=== PATIENT | female | born 1970 | race Caucasian/White ===

== ENCOUNTER 2020-05-30 11:27 | Emergency (ER) | payer BC ==
[~2020-05-30] VITALS: Ht 157.5 cm; Wt 83.9 kg
--- NOTE | 2020-05-30 11:46 | NUR ---
PT STATED, I HAD A VERY SMALL BM THIS MORNING.
[2020-05-30 13:16] LABS: BASOPHILS # (AUTO) 0.1 X10'3 (0-0.2); BASOPHILS % (AUTO) 0.8 % (0-1); EOSINOPHILS # (AUTO) 0.1 X10'3 (0-0.9); EOSINOPHILS % (AUTO) 0.7 % (0-6); HEMATOCRIT 36.4 % (35.0-45.0); HEMOGLOBIN 11.4 g/dl (12.0-16.0); LYMPHOCYTES # (AUTO) 1.1 X10'3 (1.1-4.8); LYMPHOCYTES % (AUTO) 8.1 % (21-51); MEAN CORPUSCULAR HGB CONC 31.4 g/dL (33.0-36.5); MEAN CORPUSCULAR VOLUME 73.2 FL (78-98); MEAN PLATELET VOLUME 9.8 FL (7.4-10.4); MONOCYTES % (AUTO) 7.4 % (2-12); NEUTROPHILS # (AUTO) 11.3 X10'3 (1.8-7.7); PLATELET COUNT 406 X10'3 (140-440); RED BLOOD COUNT 4.97 X10'6 (4.20-5.60); RED CELL DISTRIBUTION WIDTH 16.2 % (11.5-14.5); WHITE BLOOD COUNT 13.7 X10'3 (4.5-11.0)
--- NOTE | 2020-05-30 13:18 | NUR ---
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
[2020-05-30 13:28] LABS: ALANINE AMINOTRANSFERASE 13 U/L (12-78); ALBUMIN/GLOBULIN RATIO 0.5 (1.1-1.5); ALKALINE PHOSPHATASE 77 IU/L (46-116); ANION GAP 14 (8-16); ASPARTATE AMINO TRANSFERASE 30 U/L (10-37); BILIRUBIN,TOTAL 0.5 MG/DL (0.1-1.0); BLOOD UREA NITROGEN 12 MG/DL (7-18); BUN/CREATININE RATIO 13.5 (6.6-38.0); CALCIUM 9.5 MG/DL (8.5-10.1); CHLORIDE 101 MMOL/L (99-107); CREATININE 0.89 MG/DL (0.40-0.90); GLUCOSE 77 MG/DL (70-104); POTASSIUM 4.3 MMOL/L (3.5-5.1); SODIUM 136 MMOL/L (135-145); TOTAL CARBON DIOXIDE 20.9 MMOL/L (24-32); TOTAL PROTEIN 8.5 G/DL (6.4-8.2); eGFR 67 ML/MIN
[2020-05-30] MEDS ORDERED: HYDR-4353 PO (14:03)
[2020-05-30] MEDS ORDERED: morphine 4 MG/ML inj SYRINge IV ONE (14:15)
[2020-05-30] MEDS ORDERED: ondansetron/PF 4mg/2ml inj IV ONE (14:15)
[2020-05-30 14:36] VITALS: BP 160/88
== END 2020-05-30 14:35 | disposition home or self-care (01) ==
LOC: ER 11:27
DX: R10.84 Generalized abdominal pain (principal); K59.00 Constipation, unspecified; R19.07 Generalized intra-abdominal and pelvic swelling, mass and lump
CPT/HCPCS: 36415; 74176; 80053; 85025; 99284

== ENCOUNTER 2020-06-16 07:15 | Emergency (ER) | payer BC ==
[~2020-06-16] VITALS: Ht 157.5 cm; Wt 68.2 kg
[2020-06-16] MEDS ORDERED: normal saline 1000ML IV soln IVB ONE (07:45)
[2020-06-16] MEDS ORDERED: ondansetron/PF 4mg/2ml inj IV ONE (07:45)
[2020-06-16] MEDS: morphine 4 MG/ML inj SYRINge IV PRN ×2 (07:55→09:49)
[2020-06-16 08:07] LABS: BASOPHILS # (AUTO) 0.2 X10'3 (0-0.2); BASOPHILS % (AUTO) 1.2 % (0-1); EOSINOPHILS # (AUTO) 0.1 X10'3 (0-0.9); EOSINOPHILS % (AUTO) 0.4 % (0-6); HEMATOCRIT 34.9 % (35.0-45.0); LYMPHOCYTES # (AUTO) 1.4 X10'3 (1.1-4.8); LYMPHOCYTES % (AUTO) 6.7 % (21-51); MEAN CORPUSCULAR HEMOGLOBIN 22.6 PG (27.0-31.0); MEAN CORPUSCULAR HGB CONC 31.5 g/dL (33.0-36.5); MEAN CORPUSCULAR VOLUME 71.7 FL (78-98); MEAN PLATELET VOLUME 9.9 FL (7.4-10.4); MONOCYTES # (AUTO) 1.4 X10'3 (0-0.9); MONOCYTES % (AUTO) 6.7 % (2-12); NEUTROPHILS # (AUTO) 17.4 X10'3 (1.8-7.7); PLATELET COUNT 672 X10'3 (140-440); RED BLOOD COUNT 4.87 X10'6 (4.20-5.60); RED CELL DISTRIBUTION WIDTH 17.8 % (11.5-14.5); WHITE BLOOD COUNT 20.4 X10'3 (4.5-11.0)
[2020-06-16 08:25] LABS: ALANINE AMINOTRANSFERASE 8 U/L (12-78); ALBUMIN 2.3 G/DL (3.4-5.0); ALBUMIN/GLOBULIN RATIO 0.4 (1.1-1.5); ALKALINE PHOSPHATASE 87 IU/L (46-116); ANION GAP 20 (8-16); ASPARTATE AMINO TRANSFERASE 23 U/L (10-37); BILIRUBIN,TOTAL 0.4 MG/DL (0.1-1.0); BLOOD UREA NITROGEN 84 MG/DL (7-18); BUN/CREATININE RATIO 17.3 (6.6-38.0); CALCIUM 9.4 MG/DL (8.5-10.1); CHLORIDE 98 MMOL/L (99-107); CREATININE 4.86 MG/DL (0.40-0.90); GLUCOSE 121 MG/DL (70-104); LIPASE 76 U/L (73-393); POTASSIUM 4.1 MMOL/L (3.5-5.1); SODIUM 138 MMOL/L (135-145); TOTAL PROTEIN 8.3 G/DL (6.4-8.2); eGFR 9 ML/MIN
[2020-06-16 08:34] LABS: MAGNESIUM 2.4 MG/DL (1.5-2.4)
[2020-06-16 09:04] LABS: CLARITY,URINE CLOUDY (Clear); COLOR,URINE YELLOW (Yellow); GLUCOSE, URINE NEGATIVE (Neg); KETONES,URINE TRACE mg/dl (Neg); LEUKOCYTE ESTERASE ,URINE NEGATIVE (Neg); NITRITES, URINE POSITIVE (Neg); OCCULT BLOOD,URINE LARGE (Neg); PH,URINE 5.5 (4.8-8.0); PROTEIN,URINE 30 mg/dl (Neg); UROBILINOGEN,URINE 0.2 E.U/dL (0.2-1.0)
[2020-06-16 09:09] LABS: UA COLLECTION TYPE CLN CATCH MIDSTREAM
[2020-06-16 09:12] LABS: BACTERIA,URINE 4+ /HPF (Neg); SQUAMOUS EPITHELIAL CELL,UR MANY /LPF (FEW)
[2020-06-16 09:13] LABS: MUCUS STRANDS MANY /LPF (Neg); TRANSITIONAL EPI CELLS,URINE FEW /HPF
[2020-06-16 09:14] LABS: CELLULAR CAST 0-4 /LPF (NEGATIVE); FINE GRANULAR CAST 0-3 /LPF (NEGATIVE)
[2020-06-16 09:16] LABS: ANISOCYTOSIS 1+; MICROCYTOSIS 1+; PLATELET ESTIMATE INCREASED
[2020-06-16 09:17] LABS: LARGE PLATELETS FEW; SCHISTOCYTES FEW
[2020-06-16] MEDS ORDERED: CefTRIAXone/D5W-Rocephin 1gm 50 ML IV ONE (09:35)
--- NOTE | 2020-06-16 10:32 | NUR ---
pt's is Heriberto and his phone number is [phone], mother is Paulina and number is [phone]
[2020-06-16] MEDS ORDERED: NO HOME MEDS (12:16)
--- NOTE | 2020-06-16 12:20 | NUR ---
Nurse Escoto is taking pt report for pt transfer to [facility]. pt has been accepted by MD Jasmine on the [facility]/Onc floor. pt will go to oncology when they have a bed. they are requesting a rapid covid test to be done just in case.
[2020-06-16] MEDS ORDERED: proCHLORperazine 10 MG/2 ml inj IV ONE (13:25)
[2020-06-16] MEDS ORDERED: fentaNYL/PF 50MCG/1 ML 2ML syringe IV ONE (13:25)
[2020-06-16 13:56] VITALS: BP 135/90
== END 2020-06-16 13:30 | disposition short-term general hospital (02) ==
LOC: ER 07:15
DX: R19.01 Right upper quadrant abdominal swelling, mass and lump (principal); Z20.828 Contact with and (suspected) exposure to other viral communicable diseases; R91.8 Other nonspecific abnormal finding of lung field; R11.2 Nausea with vomiting, unspecified; N17.9 Acute kidney failure, unspecified; E86.0 Dehydration; Z85.3 Personal history of malignant neoplasm of breast
CPT/HCPCS: 36415; 71045; 71250; 74176; 80053; 81001; 83605; 83690; 83735; 84145; 85008; 85025; 87040; 87635; 93005; 96361; 96365; 96375; 96376; 99285; C9803; J0696; J0780; J2270; J2405; J3010; J7030